=== PATIENT | male | born 1955 | race Caucasian/White ===

== ENCOUNTER 2020-08-12 22:06 | Emergency (ER) | payer OTHER, SELFPAY ==
[2020-08-12 22:20] VITALS: BP 111/68; PULSE 76; RESP 18; TEMP 36.8; O2SAT 99; BMI 27.9
--- NOTE | 2020-08-12 22:57 | ED_ITS ---
HPI - Arrhythmia/Palpitations General Chief Complaint: Arrhythmia/Palpitations Stated Complaint: heart issues Time Seen by Provider: 08/12/20 22:36 Source: patient Mode of arrival: Ambulatory Limitations: no limitations History of Present Illness HPI narrative: Otherwise healthy quite active 65-year-old gentleman with approximately 7 brief episodes of paroxysmal atrial fibrillation over the last 4 years. He does have mild left atrial enlargement. One of these episodes required electrical cardioversion and all of the others have spontaneously converted. He worked out this morning and at the end of his work at noticed that his heart rate was regular. He lives on [facility] and was waiting until the very last fairy hoping that he would convert spontaneously. He did take an extra 25 mg of metoprolol and noted that his rate was in the 70s and 80s most of the day but continued to be irregular. He had no chest pain, orthopnea, dyspnea, nausea, vomiting, headache, neurologic changes or findings, diarrhea or abdominal pain. Related Data Home Medications Medication Instructions Recorded Confirmed aspirin 81 mg PO QDAY #30 tab 12/21/15 atorvastatin 40 mg HS #0 12/21/15 Review of Systems Review of Systems Narrative: Remainder of complete review of systems is otherwise unremarkable except for that included in the HPI. Patient History Medical History Paroxysmal atrial fibrillation Social History Smoking Status: Never smoker Smoking Status: Never smoker alcohol intake frequency: a few times a month Substance Use Type: does not use Exam Narrative Exam Narrative: General: Healthy appearing, in no acute distress. Able to give a complete and coherent history. Well-nourished well-developed HEENT: Moist mucous membranes, normal sclera with reactive pupils, Neck: No JVD, supple Respiratory: Lungs are clear to auscultation, no wheezing no rales no rhonchi. Full and symmetrical air movement Cardiac: Regular rate and rhythm no murmurs no bruits Abdomen: Soft, nontender, good bowel tones, no flank pain Skin: Warm and dry, no rashes Neurologic: Grossly neurologically intact with no obvious asymmetries or abnormalities Extremities: No trauma, well perfused Psych: Cooperative, appropriate insight and affect Initial Vital Signs Initial Vital Signs: Vital Signs Temperature 98.2 F 08/12/20 22:20 Pulse Rate 76 08/12/20 22:20 Respiratory Rate 18 08/12/20 22:20 Blood Pressure 111/68 08/12/20 22:20 Pulse Oximetry 99 08/12/20 22:20 Course Orders Ordered: ED Orders 08/12/20 22:36 Complete Blood Count AUTO DIFF Stat Comprehensive Metabolic Panel Stat Magnesium Stat Thyroid Stimulating Hormone Stat Troponin I Stat 08/12/20 22:45 EKG-12 Lead Stat Vital Signs Vital signs: Vital Signs - 8 hr 08/12/20 22:20 Temperature 98.2 F Pulse Rate 76 Respiratory Rate 18 Blood Pressure 111/68 Pulse Oximetry 99 MDM - Arrhythmia/Palpitations Medical Records Attestation: I reviewed the patient's medical records. ECG Data Attestation: I personally reviewed and interpreted this ECG as follows: Interpretation: 1. 22:28 Atrial flutter with variable block at a rate of 85 Nonspecific T-wave abnormality No acute ischemic changes 222:50 Sinus rhythm at a rate of 45 Normal intervals, normal axis Resolved ST changes No acute ischemic findings MDM Narrative Medical decision making narrative: 65-year-old gentleman with a history of paroxysmal atrial fibrillation with 14 hours of atrial fibrillation today otherwise asymptomatic. Came to the emergency room for further evaluation and anticipation of cardioversion and he spontaneously cardioverted as his IV was started. As he is otherwise healthy and has had no symptoms no additional workup was felt to be required at this time. I did recommend that he begin a baby aspirin a day and follow-up with his hospital internship. He notes that he is due for another echocardiogram next year. He has no evidence of infection, medication overuse or overdose, or congestive heart failure. He is safe for discharge home. Discharge Plan Departure Patient Disposition: Home Clinical Impression: Paroxysmal atrial fibrillation Instructions: DI for Atrial Flutter Activity Restrictions/Additional Instructions: Thank you for coming in today You converted from atrial flutter to normal sinus rhythm with your IV start in the emergency department. Because you have not been having pain, have not been short of breath and have no other complaints we opted to not proceed with any further labs or studies at this time. Your repeat EKG was entirely normal. At this point, I would recommend baby aspirin for at least 6 weeks and do contact your hospital internship to see if they have any other suggestions or recommendations. The way that you used your metoprolol today with absolutely perfect. Should you have a recurrent episode, please continue to use the metoprolol in this manner. If you have chest pain, shortness of breath, fibrillation that does not convert after 12 hours or new or developing symptoms, please feel free to return to the emergency department. Prescriptions: No Action atorvastatin 40 MG tablet 40 mg HS Qty: 0 RF: 0 aspirin 81 MG tablet,delayed release (DR/EC) 81 mg PO QDAY Qty: 30 RF: 0 Referrals: Syd Page MD [Primary Care Provider] -
--- NOTE | 2020-08-12 23:02 | PC.NURSE ---
Pt spontaneously converted from atrial fibrillation to sinus atif during IV start at 2250
== END 2020-08-12 23:32 | disposition home or self-care (01) ==
PROVIDERS: Emergency Provider Emergency Medicine; PCP Family Medicine
DX: I48.0 Paroxysmal atrial fibrillation (principal)
CPT/HCPCS: 36415; 93005; 93010; 99283

== ENCOUNTER → 2022-02-16 07:10 | Outpatient (CLI) | payer MEDICARE, OTHER, SELFPAY ==
[2022-02-16 20:54] LABS: COVID19 - ORCAS (NP or Nasal) Negative (Negative)
== END ==
PROVIDERS: PCP Family Medicine; Visit Provider Family Medicine
DX: Z20.822 Contact with and (suspected) exposure to COVID-19 (principal)
CPT/HCPCS: C9803; U0003

== ENCOUNTER → 2022-02-17 09:46 | Outpatient (CLI) | payer MEDICARE, OTHER, SELFPAY ==
--- NOTE | 2022-02-22 09:27 | PM.PFT.1 ---
Pulmonary Function Test Referral & Results Date Patient Seen: 02/17/22 Requesting provider: Cori Dias Results: The spirometry demonstrates an FVC of 3.82 L which is 83% of predicted. The FEV1 was measured at 2.67 L which is 70% of predicted. The FEV1/FVC ratio was 70 which is 93% of predicted. Following the administration of bronchodilator there was an 11% improvement in FEV1 and a 35% improvement in FEF 25-75%. Lung volumes show an SVC of 3.84 L which is 82% of predicted. The diffusing capacity was measured at 27.41 which is 84% of predicted. The maximum voluntary ventilation was reduced Interpretation: This study demonstrates possibly mild obstructive lung disease based on reduction FEV1 although FEV1/FVC ratio is well preserved, there is evidence of benefit following bronchodilator as above There was a very minimal reduction in lung volumes suggesting the possibility of minimal restrictive lung disease Diffusing capacity should be considered normal There is a minimal reduction in maximum voluntary ventilation, which also supports the presence of minimal obstructive lung disease
== END ==
PROVIDERS: PCP Family Medicine; Referring Provider Internal Medicine Pulmonary Disease; Visit Provider Internal Medicine Pulmonary Disease
DX: R06.09 Other forms of dyspnea (principal); J98.8 Other specified respiratory disorders
CPT/HCPCS: 94060; 94726; 94729

== ENCOUNTER 2022-02-23 21:09 | Emergency (ER) | payer MEDICARE, OTHER, SELFPAY ==
[2022-02-23] VITALS (15 sets, daily range): BP systolic 86–126; BP diastolic 52–77; PULSE 44–81; RESP 13–34; TEMP 36.6; O2SAT 92–98; BMI 27.9
--- NOTE | 2022-02-23 21:27 | ED_ITS ---
HPI - Arrhythmia/Palpitations General Chief Complaint: Arrhythmia/Palpitations Stated Complaint: Afib episode Time Seen by Provider: 02/23/22 21:19 Source: patient Mode of arrival: Ambulatory History of Present Illness HPI narrative: 66-year-old male nonsmoker with history of AFib on Eliquis presents with his in the chief complaint of shortness of breath, chest pressure and some lightheadedness over the past few days. He states that he is in paroxysmal AFib and usually bumps out after few hours but this time it has been a few days. His resting heart rate when in a sinus rhythm is in the 40s and he states that rarely does his AFib go above 90, however is quite sensitive to it in aware of its presence. He is had some increasing episodes and severity since his most recent COVID vaccine. He denies any change in the doses or type of medications. He has been on Eliquis for a year and a half and has not missed any doses. He is otherwise well and denies fever or chills. He has no abdominal pain, vomiting or diarrhea. He denies dysuria, frequency or urgency. He was cardioverted once before about 7 years ago but not since Related Data Home Medications Medication Instructions Recorded Confirmed atorvastatin 40 mg tablet 40 mg HS ##0 12/21/15 atorvastatin 80 mg tablet 80 mg PO DAILY 11/11/20 11/11/20 ivermectin 1 % topical cream 1 applic topical DAILY 11/11/20 11/11/20 metoprolol succinate 25 mg 12.5 mg PO DAILY 11/11/20 11/11/20 tablet,extended release 24 hr metronidazole 0.75 % lotion 1 applic topical DAILY 11/11/20 11/11/20 apixaban 5 mg tablet (Eliquis) 5 mg PO BID 11/18/20 11/18/20 glucosamine sulfate [Glucosamine] PO 11/18/20 11/18/20 metronidazole 0.75 % topical cream 1 applic topical DAILY 11/18/20 11/18/20 multivitamin [Daily Multi-Vitamin] PO 11/18/20 11/18/20 psyllium [Metamucil (sugar)] PO 11/18/20 11/18/20 Allergies Allergy/AdvReac Type Severity Reaction Status Date / Time No Known Drug Allergies Allergy Unverified 11/11/20 09:05 Review of Systems Review of Systems Narrative: GENERAL: see HPI HEENT: Denies sinus pain, ear pain, sore throat, difficulty swallowing, diz ziness. RESPIRATORY: see HPI CARDIOVASCULAR: Denies chest pain, palpitations, orthopnea, edema, GASTROINTESTINAL: Denies nausea, vomiting, abdominal pain, diarrhea, constipation, melena. : Denies dysuria, frequency, incontinence, hematuria, urinary retention. MUSCULOSKELETAL: denies weakness, joint pain, or bony pain SKIN: Denies rash, skin lesions, or other NEUROLOGIC: Denies weakness, headache, numbness, change in speech, confusion, seizures, incoordination. PSYCHIATRIC: No concerning psychosocial issues. 12 point review of systems is negative except for those stated above Patient History Medical History History of adenomatous polyp of colon (~03/16/17) Hypertension Paroxysmal atrial fibrillation (~04/09/18) Personal history of colonic polyps Social History Smoking Status: Never smoker Smoking Status: Never smoker alcohol intake frequency: a few times a month Substance Use Type: does not use Exam Narrative Exam Narrative: GENERAL: [66] year old patient appears stated age. Well-developed patient, in mild distress. HEAD: Atraumatic. Normocephalic. EYES: Pupils equal round and reactive. Extraocular motions intact. No scleral icterus. No injection or drainage. ENT: Nose without bleeding, purulent drainage. Throat without erythema, tonsillar hypertrophy or exudate. Airway patent. NECK: Trachea midline. Non tender CARDIOVASCULAR: Irregularly irregular rhythm without murmurs, gallops, or rubs. RESPIRATORY: Clear to auscultation. Breath sounds equal bilaterally. No wheezes, rales, or rhonchi. GASTROINTESTINAL: Abdomen soft, non-tender, nondistended. EXTREMITIES: No edema or joint tenderness. BACK: Nontender without deformity or crepitance. No flank tenderness. NEURO: AOx3. SKIN: No rash or erythema of visible areas Initial Vital Signs Initial Vital Signs: Vital Signs Temperature 97.8 F 02/23/22 21:19 Pulse Rate 80 02/23/22 21:19 Respiratory Rate 16 02/23/22 21:19 Blood Pressure 126/77 02/23/22 21:19 Pulse Oximetry 98 02/23/22 21:19 Oxygen Delivery Method 02/23/22 21:19 Course Orders Ordered: ED Orders 02/24/22 EKG-12 Lead Routine Discontinued Medications Propofol (Propofol 200 Mg/20 Ml Vial) 90 mg 1 mg/kg (90 mg) IV NOW ONE Stop: 02/23/22 21:39 Last Admin: 02/23/22 22:14 Dose: 70 mg Documented By: AT Vital Signs Vital signs: Vital Signs - 8 hr 02/23/22 21:19 Temperature 97.8 F Pulse Rate 80 Respiratory Rate 16 Blood Pressure 126/77 Pulse Oximetry 98 Oxygen Delivery Method Room Air MDM - Arrhythmia/Palpitations Lab Data Result diagrams: 02/23/22 21:37 02/23/22 21:37 Labs: Lab Results 02/23/22 02/23/22 Range/Units 21:37 21:37 WBC 8.3 (4.5-11.0) X10^3/uL RBC 4.43 L (4.5-5.9) X10^6/uL Hgb 14.8 (13.5-17.5) g/dL Hct 44.0 (41-53) % MCV 99.5 (80-100) fL MCH 33.5 (26-34) PG MCHC 33.7 (30-36) % RDW 13.9 (11.6-14.8) % Plt Count 148 L (150-400) X10^3/uL Neut % (Auto) 50.9 (50-75) % Lymph % (Auto) 32.3 (25-40) % Bartholomew % (Auto) 12.2 (3-14) % Eos % (Auto) 3.6 (2-4) % Baso % (Auto) 1.0 (0-2) % Neut # (Auto) 4200 (8555-9909) /uL Lymph # (Auto) 2700 (8060-7667) /uL Bartholomew # (Auto) 1000 H (0-900) /uL Eos # (Auto) 300 (0-450) /uL Baso # (Auto) 100 (0-100) /uL Sodium 138 (137-145) mmol/L Potassium 4.0 (3.4-5.1) mmol/L Chloride 101 (98-107) mmol/L Carbon Dioxide 27 (22-32) mmol/L BUN 21 H (9-20) mg/dL Creatinine 1.06 (0.66-1.25) mg/dL Estimated GFR > 60 (>60) mL/min BUN/Creatinine Ratio 19.8 (6-22) Glucose 127 H (80-110) mg/dL Calcium 8.9 (8.4-10.2) mg/dL Magnesium 1.8 (1.6-2.3) mg/dL Total Creatine Kinase 141 (55-170) U/L CK-MB (CK-2) 2.75 H (<2.37) ng/mL CK-MB (CK-2) Rel Index 2.0 (1.5-5.0) % Troponin I 0.019 (0.01-0.034) ng/mL Discharge Plan Departure Patient Disposition: Home Clinical Impression: Paroxysmal atrial fibrillation Instructions: DI for Atrial Fibrillation Activity Restrictions/Additional Instructions: *You have been diagnosed with [atrial fibrillation with procedural sedation and electrocardioversion] *What to do: *Please continue to take your regular medications as directed. *Please follow up with your primary care provider in 2-3 days, call for an appointment. Let them know you were seen in the Emergency Department and that we ask that you be seen in follow up. We will electronically transmit a record of today's note if your PCP is in our system *Return to Emergency Department if you should have any new, worsening or concerning symptoms Prescriptions: No Action atorvastatin 40 MG tablet 40 mg HS Qty: 0 Eliquis 5 mg tablet 5 mg PO BID multivitamin [Daily Multi-Vitamin] PO glucosamine sulfate [Glucosamine] PO psyllium [Metamucil (sugar)] PO metronidazole 0.75 % cream 1 applic topical DAILY atorvastatin 80 mg tablet 80 mg PO DAILY ivermectin 1 % cream 1 applic topical DAILY metoprolol succinate 25 mg tablet extended release 24 hr 12.5 mg PO DAILY metronidazole 0.75 % lotion 1 applic topical DAILY Referrals: Ernst Martinez DO [Primary Care Provider] - Visit Report Forms: Patient Portal/API
[2022-02-23 21:45] LABS: Add Manual Diff / Slide Review NO; Basophils Absolute Auto 100 /uL (0-100); Eosinophils Absolute Auto 300 /uL (0-450); Eosinophils Percent Auto 3.6 % (2-4); Hemoglobin 14.8 g/dL (13.5-17.5); Lymphocytes Absolute Auto 2700 /uL (1100-4500); Lymphocytes Percent Auto 32.3 % (25-40); Mean Corpuscular HGB Conc 33.7 % (30-36); Mean Corpuscular Hemoglobin 33.5 PG (26-34); Mean Corpuscular Volume 99.5 fL (80-100); Monocytes Absolute Auto 1000 /uL (0-900); Monocytes Percent Auto 12.2 % (3-14); Neutrophils Absolute Auto 4200 /uL (1500-7000); Neutrophils Percent Auto 50.9 % (50-75); Platelet Count 148 X10^3/uL (150-400); Red Blood Cell Count 4.43 X10^6/uL (4.5-5.9); Red Cell Distribution Width 13.9 % (11.6-14.8); White Blood Cell Count 8.3 X10^3/uL (4.5-11.0)
[2022-02-23 21:58] LABS: BUN Creatinine Ratio 19.8 (6-22); Blood Urea Nitrogen 21 mg/dL (9-20); Calcium 8.9 mg/dL (8.4-10.2); Carbon Dioxide 27 mmol/L (22-32); Chloride 101 mmol/L (98-107); Creatine Kinase 141 U/L (55-170); Estimated Glomerular Filt Rate > 60 mL/min (>60); Glucose 127 mg/dL (80-110); Magnesium 1.8 mg/dL (1.6-2.3); Sodium 138 mmol/L (137-145)
[2022-02-23 22:11] LABS: Troponin I 0.019 ng/mL (0.01-0.034)
[2022-02-23 22:12] LABS: Creatine Kinase MB 2.75 ng/mL (<2.37); HEMOLYSIS 23 (0-50)
[2022-02-23] MEDS: propofoL 200 MG/20 ML VIAL 90 MG IV (22:14)
== END 2022-02-23 23:05 | disposition home or self-care (01) ==
PROVIDERS: Emergency Provider Emergency Medicine; PCP Family Medicine
DX: I48.0 Paroxysmal atrial fibrillation (principal); Z79.01 Long term (current) use of anticoagulants; R07.9 Chest pain, unspecified; Z79.899 Other long term (current) drug therapy
CPT/HCPCS: 36415; 80048; 82550; 82553; 83735; 84484; 85025; 92960; 93005; 99152; 99285; J2704

== ENCOUNTER 2022-07-22 10:56 | Emergency (ER) | payer MEDICARE, OTHER, SELFPAY ==
[2022-07-22] VITALS (33 sets, daily range): BP systolic 99–119; BP diastolic 61–82; PULSE 40–74; RESP 13–37; TEMP 36.1; O2SAT 93–100; BMI 27.9
--- NOTE | 2022-07-22 11:12 | DI.RAD.S_ITS ---
PROCEDURE: XR CHEST 1V INDICATIONS: chest pain TECHNIQUE: One view of the chest was acquired. COMPARISON: None. FINDINGS: Surgical changes and devices: None. Lungs and pleura: Lungs are clear. No pleural effusions or pneumothorax. Mediastinum: Mediastinal contours appear normal. Heart size is normal. Bones and chest wall: No suspicious bony lesions. Overlying soft tissues appear unremarkable. IMPRESSION: No acute cardiopulmonary findings Approved by: Brad Gomes M.D. on 07/22/2022 at 11:32
[2022-07-22 11:33] LABS: Add Manual Diff / Slide Review NO; Basophils Absolute Auto 100 /uL (0-100); Basophils Percent Auto 1.2 % (0-2); Eosinophils Absolute Auto 200 /uL (0-450); Eosinophils Percent Auto 3.7 % (2-4); Hematocrit 43.4 % (41-53); Hemoglobin 14.7 g/dL (13.5-17.5); Lymphocytes Absolute Auto 2200 /uL (1100-4500); Lymphocytes Percent Auto 34.7 % (25-40); Mean Corpuscular Hemoglobin 33.6 PG (26-34); Mean Corpuscular Volume 99.1 fL (80-100); Monocytes Absolute Auto 800 /uL (0-900); Monocytes Percent Auto 11.8 % (3-14); Neutrophils Absolute Auto 3100 /uL (1500-7000); Neutrophils Percent Auto 48.6 % (50-75); Platelet Count 142 X10^3/uL (150-400); Red Blood Cell Count 4.38 X10^6/uL (4.5-5.9); White Blood Cell Count 6.5 X10^3/uL (4.5-11.0)
[2022-07-22 11:37] LABS: INR 1.4 (0.9-1.3); Prothrombin Time 16.5 SECONDS (10.1-12.7)
[2022-07-22 11:40] LABS: PTT Partial Thromboplastin Tim 33 SECONDS (26-36)
[2022-07-22 11:46] LABS: Alanine Aminotransferase 27 IU/L (<50); Albumin Globulin Ratio 1.4 (1.0-2.8); Alkaline Phosphatase 47 U/L (38-126); Aspartate Aminotransferase 34 IU/L (17-59); BUN Creatinine Ratio 20.4 (6-22); Bilirubin Total 0.8 mg/dL (0.2-1.3); Blood Urea Nitrogen 19 mg/dL (9-20); Calcium 8.8 mg/dL (8.4-10.2); Carbon Dioxide 29 mmol/L (22-32); Chloride 102 mmol/L (98-107); Creatine Kinase 154 U/L (55-170); Estimated Glomerular Filt Rate > 60 mL/min (>60); Globulin 2.8 g/dL (1.7-4.1); Glucose 101 mg/dL (80-110); HEMOLYSIS < 15 (0-50); Lipase 142 U/L (23-300); Magnesium 1.9 mg/dL (1.6-2.3); Sodium 138 mmol/L (137-145); Total Protein 6.8 g/dL (6.3-8.2)
[2022-07-22 11:49] LABS: COVID19 -Nasal RAPID Negative (Negative)
[2022-07-22 11:54] LABS: Troponin I < 0.012 ng/mL (0.01-0.034)
[2022-07-22 12:16] LABS: CKMB % Relative Index 1.6 % (1.5-5.0); Creatine Kinase MB 2.45 ng/mL (<2.37)
--- NOTE | 2022-07-22 14:31 | ED.ARRPALP ---
HPI - Arrhythmia/Palpitations <VANDANA HubbardP - Last Filed: 07/22/22 16:29> General Chief Complaint: Arrhythmia/Palpitations Stated Complaint: AFib converted per pt Time Seen by Provider: 07/22/22 14:17 Source: patient Mode of arrival: Ambulatory History of Present Illness HPI narrative: This is a 67-year-old gentleman with history of paroxysmal atrial fibrillation which she attributes to post COVID vaccine over 2 years ago. States that he is had 3 cardioversions and is pending a consultation with the [facility] for EP mapping and cardioversion soon. He sees Dr. Whitney from the [facility] for Cardiac electrophysiology. Patient states that he is quite healthy, exercises daily, has been on apixaban 5 mg daily and metoprolol 25 mg ER daily for a few years. States that he takes magnesium supplement. States he does not have any known triggers, states this has happened intermittently for many years and he feels that he has low energy level, and does not have his normal energy level. He is here requesting cardioversion as he is hoping for a better quality of life while he waits to go to the [facility]. He denies any symptoms of illness, denies any fever upper respiratory symptoms, denies dizziness, weakness, vision changes, chest pain or shortness of breath, he denies any history cardiac event, states his only arrhythmias atrial fibrillation and he is not had a cardiac catheterization. Reports that he has been NPO since 09:00. Related Data Home Medications Medication Instructions Recorded Confirmed atorvastatin 40 mg tablet 40 mg ##0 12/21/15 atorvastatin 80 mg tablet 80 mg PO DAILY 11/11/20 11/11/20 ivermectin 1 % topical cream 1 applic topical DAILY 11/11/20 11/11/20 metoprolol succinate 25 mg 25 mg PO DAILY 11/11/20 07/22/22 tablet,extended release 24 hr metronidazole 0.75 % lotion 1 applic topical DAILY 11/11/20 11/11/20 apixaban 5 mg tablet (Eliquis) 5 mg PO BID 11/18/20 07/22/22 glucosamine sulfate [Glucosamine] PO 11/18/20 11/18/20 metronidazole 0.75 % topical cream 1 applic topical DAILY 11/18/20 11/18/20 multivitamin [Daily Multi-Vitamin] PO 11/18/20 11/18/20 psyllium [Metamucil (sugar)] PO 11/18/20 11/18/20 Allergies Allergy/AdvReac Type Severity Reaction Status Date / Time No Known Drug Allergies Allergy Verified 07/22/22 11:11 Review of Systems <FANY Hubbard - Last Filed: 07/22/22 16:29> Review of Systems ROS Unobtainable: All systems reviewed & are unremarkable except as noted in HPI and below Patient History <FANY Hubbard - Last Filed: 07/22/22 16:29> Medical History History of adenomatous polyp of colon (~03/16/17) Hypertension Paroxysmal atrial fibrillation (~04/09/18) Personal history of colonic polyps Social History Smoking Status: Never smoker Smoking Status: Never smoker alcohol intake frequency: a few times a month Substance Use Type: does not use Exam <FANY Hubbard - Last Filed: 07/22/22 16:29> Narrative Exam Narrative: Reviewed vitals signs and nursing notes. General: Pleasant, sitting upright, in no acute distress, well groomed, afebrile HEENT: symmetrical facial expressions, moist mucous membranes, neck is supple CV: Irregular rhythm and bradycardic rate 50s to 60s, EKG with atrial fibrillation and no ST changes, no murmur, warm extremities without edema Status post cardioversion, sinus bradycardia on EKG with ST changes or acute abnormality, he is bradycardic in 40s with S1-S2, no murmur Respiratory: normal work of breathing, without tachypnea or hypoxia. GI: abdomen soft, nondistended, without CVA tenderness bilaterally. MSK: moves all extremities, no weakness, normal tone, ambulatory without deficit Skin: brisk capillary refill, without rash or wound Neuro: clear speech and normal cognition, A&O x3, GCS 15, no focal motor or sensation deficits Initial Vital Signs Initial Vital Signs: Vital Signs Temperature 97.0 F L 07/22/22 11:06 Pulse Rate 67 07/22/22 11:06 Respiratory Rate 18 07/22/22 11:06 Blood Pressure 119/71 07/22/22 11:06 Pulse Oximetry 99 07/22/22 11:06 Oxygen Delivery Method Room Air 07/22/22 11:06 <Celso Chavez MD - Last Filed: 08/06/22 22:21> Initial Vital Signs Initial Vital Signs: Vital Signs Temperature 97.0 F L 07/22/22 11:06 Pulse Rate 67 07/22/22 11:06 Respiratory Rate 18 07/22/22 11:06 Blood Pressure 119/71 07/22/22 11:06 Pulse Oximetry 99 07/22/22 11:06 Oxygen Delivery Method Room Air 07/22/22 11:06 <Celos Chavez MD - Last Filed: 08/06/22 22:21> Cardioversion Time of Cardioversion: 15:45 Consent Signed: Yes Indication: Symptomatic atrial fibrillation Stability: Stable Number of attempts (shocks): 2 Joules used: 150 Cardiac rhythm post-cardioversion: Sinus bradycardia Procedural Sedation Time of procedure: 15:45 Consent signed: Yes Time out performed: Yes Indication: cardioversion ASA Class: I Mallampati Airway Classification: Class I Time of Last PO Intake: 09:00 Preparation: panel monitor applied, pulse oximeter, capnometry used, supplemental O2 applied, reversal agents at bedside, suction/airway equipment at bedside and IV secured IV Propofol dose (mg): 90 Intraservice time/total sedation time (min): 10 ED Sedation Level: Moderate (Concious) Patient Tolerated Procedure: Well Complications: none Additional Comments: Patient tolerated very well. No adverse events. Course <FANY Hubbard - Last Filed: 07/22/22 16:29> Orders Ordered: Discontinued Medications Propofol (Propofol 200 Mg/20 Ml Vial) 90 mg 1 mg/kg (90 mg) IV NOW ONE Stop: 07/22/22 15:21 Last Admin: 07/22/22 15:48 Dose: 90 mg Documented By: ROBEL Vital Signs Vital signs: Vital Signs - 8 hr 07/22/22 11:06 07/22/22 14:06 07/22/22 14:06 Temperature 97.0 F L Pulse Rate 67 62 Respiratory Rate 18 Blood Pressure 119/71 115/82 Pulse Oximetry 99 100 Oxygen Delivery Method Room Air 07/22/22 14:10 07/22/22 14:15 07/22/22 14:20 Temperature Pulse Rate 65 67 61 Respiratory Rate Blood Pressure Pulse Oximetry 100 100 100 Oxygen Delivery Method 07/22/22 14:25 07/22/22 14:30 07/22/22 14:31 Temperature Pulse Rate 54 L 74 Respiratory Rate Blood Pressure 115/78 Pulse Oximetry 99 100 Oxygen Delivery Method 07/22/22 14:31 07/22/22 14:35 07/22/22 14:40 Temperature Pulse Rate 62 60 59 L Respiratory Rate Blood Pressure Pulse Oximetry 100 100 99 Oxygen Delivery Method 07/22/22 14:45 07/22/22 14:50 07/22/22 14:55 Temperature Pulse Rate 69 69 64 Respiratory Rate 22 15 Blood Pressure Pulse Oximetry 99 99 99 Oxygen Delivery Method 07/22/22 15:00 07/22/22 15:00 07/22/22 15:05 Temperature Pulse Rate 65 73 Respiratory Rate 23 Blood Pressure 117/71 Pulse Oximetry 98 99 Oxygen Delivery Method 07/22/22 15:10 07/22/22 15:15 07/22/22 15:20 Temperature Pulse Rate 68 65 67 Respiratory Rate 20 16 Blood Pressure Pulse Oximetry 99 99 99 Oxygen Delivery Method 07/22/22 15:25 07/22/22 15:30 07/22/22 15:30 Temperature Pulse Rate 63 71 Respiratory Rate 19 Blood Pressure 119/72 Pulse Oximetry 99 100 Oxygen Delivery Method 07/22/22 15:35 07/22/22 15:40 07/22/22 15:45 Temperature Pulse Rate 66 72 Respiratory Rate 17 Blood Pressure 114/71 Pulse Oximetry 99 100 Oxygen Delivery Method 07/22/22 15:45 07/22/22 15:50 07/22/22 15:50 Temperature Pulse Rate 69 42 L Respiratory Rate 17 Blood Pressure 99/63 Pulse Oximetry 100 93 Oxygen Delivery Method 07/22/22 15:55 07/22/22 15:55 07/22/22 16:00 Temperature Pulse Rate 43 L 41 L Respiratory Rate Blood Pressure 106/67 Pulse Oximetry 100 100 Oxygen Delivery Method 07/22/22 16:01 07/22/22 16:01 07/22/22 16:05 Temperature Pulse Rate 41 L Respiratory Rate 37 H Blood Pressure 104/61 107/66 Pulse Oximetry 100 Oxygen Delivery Method 07/22/22 16:05 07/22/22 16:10 07/22/22 16:13 Temperature Pulse Rate 41 L 41 L Respiratory Rate 19 13 Blood Pressure 103/62 Pulse Oximetry 98 100 Oxygen Delivery Method 07/22/22 16:13 07/22/22 16:15 07/22/22 16:15 Temperature Pulse Rate 43 L 46 L Respiratory Rate 16 20 Blood Pressure 108/67 Pulse Oximetry 100 100 Oxygen Delivery Method 07/22/22 16:20 07/22/22 16:20 07/22/22 16:25 Temperature Pulse Rate 41 L Respiratory Rate 20 Blood Pressure 116/65 115/62 Pulse Oximetry 99 Oxygen Delivery Method 07/22/22 16:25 Temperature Pulse Rate 40 L Respiratory Rate 23 Blood Pressure Pulse Oximetry 100 Oxygen Delivery Method <Celso Chavez MD - Last Filed: 08/06/22 22:21> Orders Ordered: Discontinued Medications Propofol (Propofol 200 Mg/20 Ml Vial) 90 mg 1 mg/kg (90 mg) IV NOW ONE Stop: 07/22/22 15:21 Last Admin: 07/22/22 15:48 Dose: 90 mg Documented By: ROBEL Vital Signs Vital signs: Vital Signs - 8 hr 07/22/22 11:06 07/22/22 14:06 07/22/22 14:06 Temperature 97.0 F L Pulse Rate 67 62 Respiratory Rate 18 Blood Pressure 119/71 115/82 Pulse Oximetry 99 100 Oxygen Delivery Method Room Air 07/22/22 14:10 07/22/22 14:15 07/22/22 14:20 Temperature Pulse Rate 65 67 61 Respiratory Rate Blood Pressure Pulse Oximetry 100 100 100 Oxygen Delivery Method 07/22/22 14:25 07/22/22 14:30 07/22/22 14:31 Temperature Pulse Rate 54 L 74 Respiratory Rate Blood Pressure 115/78 Pulse Oximetry 99 100 Oxygen Delivery Method 07/22/22 14:31 07/22/22 14:35 07/22/22 14:40 Temperature Pulse Rate 62 60 59 L Respiratory Rate Blood Pressure Pulse Oximetry 100 100 99 Oxygen Delivery Method 07/22/22 14:45 07/22/22 14:50 07/22/22 14:55 Temperature Pulse Rate 69 69 64 Respiratory Rate 22 15 Blood Pressure Pulse Oximetry 99 99 99 Oxygen Delivery Method 07/22/22 15:00 07/22/22 15:00 07/22/22 15:05 Temperature Pulse Rate 65 73 Respiratory Rate 23 Blood Pressure 117/71 Pulse Oximetry 98 99 Oxygen Delivery Method 07/22/22 15:10 07/22/22 15:15 07/22/22 15:20 Temperature Pulse Rate 68 65 67 Respiratory Rate 20 16 Blood Pressure Pulse Oximetry 99 99 99 Oxygen Delivery Method 07/22/22 15:25 07/22/22 15:30 07/22/22 15:30 Temperature Pulse Rate 63 71 Respiratory Rate 19 Blood Pressure 119/72 Pulse Oximetry 99 100 Oxygen Delivery Method 07/22/22 15:35 07/22/22 15:40 07/22/22 15:45 Temperature Pulse Rate 66 72 Respiratory Rate 17 Blood Pressure 114/71 Pulse Oximetry 99 100 Oxygen Delivery Method 07/22/22 15:45 07/22/22 15:50 07/22/22 15:50 Temperature Pulse Rate 69 42 L Respiratory Rate 17 Blood Pressure 99/63 Pulse Oximetry 100 93 Oxygen Delivery Method 07/22/22 15:55 07/22/22 15:55 07/22/22 16:00 Temperature Pulse Rate 43 L 41 L Respiratory Rate Blood Pressure 106/67 Pulse Oximetry 100 100 Oxygen Delivery Method 07/22/22 16:01 07/22/22 16:01 07/22/22 16:05 Temperature Pulse Rate 41 L Respiratory Rate 37 H Blood Pressure 104/61 107/66 Pulse Oximetry 100 Oxygen Delivery Method 07/22/22 16:05 07/22/22 16:10 07/22/22 16:13 Temperature Pulse Rate 41 L 41 L Respiratory Rate 19 13 Blood Pressure 103/62 Pulse Oximetry 98 100 Oxygen Delivery Method 07/22/22 16:13 07/22/22 16:15 07/22/22 16:15 Temperature Pulse Rate 43 L 46 L Respiratory Rate 16 20 Blood Pressure 108/67 Pulse Oximetry 100 100 Oxygen Delivery Method 07/22/22 16:20 07/22/22 16:20 07/22/22 16:25 Temperature Pulse Rate 41 L Respiratory Rate 20 Blood Pressure 116/65 115/62 Pulse Oximetry 99 Oxygen Delivery Method 07/22/22 16:25 Temperature Pulse Rate 40 L Respiratory Rate 23 Blood Pressure Pulse Oximetry 100 Oxygen Delivery Method MDM - Arrhythmia/Palpitations <FANY Hubbard - Last Filed: 07/22/22 16:29> Lab Data 07/22/22 11:16 07/22/22 11:16 Labs: Lab Results 07/22/22 07/22/22 07/22/22 Range/Units 11:16 11:16 11:16 WBC 6.5 (4.5-11.0) X10^3/uL RBC 4.38 L (4.5-5.9) X10^6/uL Hgb 14.7 (13.5-17.5) g/dL Hct 43.4 (41-53) % MCV 99.1 (80-100) fL MCH 33.6 (26-34) PG MCHC 34.0 (30-36) % RDW 14.0 (11.6-14.8) % Plt Count 142 L (150-400) X10^3/uL Neut % (Auto) 48.6 L (50-75) % Lymph % (Auto) 34.7 (25-40) % [place] % (Auto) 11.8 (3-14) % Eos % (Auto) 3.7 (2-4) % Baso % (Auto) 1.2 (0-2) % Neut # (Auto) 3100 (0979-9418) /uL Lymph # (Auto) 2200 (3359-9098) /uL [place] # (Auto) 800 (0-900) /uL Eos # (Auto) 200 (0-450) /uL Baso # (Auto) 100 (0-100) /uL PT 16.5 H (10.1-12.7) SECONDS INR 1.4 H (0.9-1.3) APTT 33 (26-36) SECONDS Sodium 138 (137-145) mmol/L Potassium 4.0 (3.4-5.1) mmol/L Chloride 102 (98-107) mmol/L Carbon Dioxide 29 (22-32) mmol/L BUN 19 (9-20) mg/dL Creatinine 0.93 (0.66-1.25) mg/dL Estimated GFR > 60 (>60) mL/min BUN/Creatinine Ratio 20.4 (6-22) Glucose 101 (80-110) mg/dL Calcium 8.8 (8.4-10.2) mg/dL Magnesium 1.9 (1.6-2.3) mg/dL Total Bilirubin 0.8 (0.2-1.3) mg/dL AST 34 (17-59) IU/L ALT 27 (<50) IU/L Alkaline Phosphatase 47 (38-126) U/L Total Creatine Kinase 154 (55-170) U/L CK-MB (CK-2) 2.45 H (<2.37) ng/mL CK-MB (CK-2) Rel Index 1.6 (1.5-5.0) % Troponin I < 0.012 (0.01-0.034) ng/mL Total Protein 6.8 (6.3-8.2) g/dL Albumin 4.0 (3.5-5.0) g/dL Globulin 2.8 (1.7-4.1) g/dL Albumin/Globulin Ratio 1.4 (1.0-2.8) Lipase 142 (23-300) U/L SARS-CoV-2 (PCR) (Negative) 07/22/22 Range/Units 11:16 WBC (4.5-11.0) X10^3/uL RBC (4.5-5.9) X10^6/uL Hgb (13.5-17.5) g/dL Hct (41-53) % MCV (80-100) fL MCH (26-34) PG MCHC (30-36) % RDW (11.6-14.8) % Plt Count (150-400) X10^3/uL Neut % (Auto) (50-75) % Lymph % (Auto) (25-40) % [place] % (Auto) (3-14) % Eos % (Auto) (2-4) % Baso % (Auto) (0-2) % Neut # (Auto) (2776-9934) /uL Lymph # (Auto) (9167-3331) /uL [place] # (Auto) (0-900) /uL Eos # (Auto) (0-450) /uL Baso # (Auto) (0-100) /uL PT (10.1-12.7) SECONDS INR (0.9-1.3) APTT (26-36) SECONDS Sodium (137-145) mmol/L Potassium (3.4-5.1) mmol/L Chloride (98-107) mmol/L Carbon Dioxide (22-32) mmol/L BUN (9-20) mg/dL Creatinine (0.66-1.25) mg/dL Estimated GFR (>60) mL/min BUN/Creatinine Ratio (6-22) Glucose (80-110) mg/dL Calcium (8.4-10.2) mg/dL Magnesium (1.6-2.3) mg/dL Total Bilirubin (0.2-1.3) mg/dL AST (17-59) IU/L ALT (<50) IU/L Alkaline Phosphatase (38-126) U/L Total Creatine Kinase (55-170) U/L CK-MB (CK-2) (<2.37) ng/mL CK-MB (CK-2) Rel Index (1.5-5.0) % Troponin I (0.01-0.034) ng/mL Total Protein (6.3-8.2) g/dL Albumin (3.5-5.0) g/dL Globulin (1.7-4.1) g/dL Albumin/Globulin Ratio (1.0-2.8) Lipase (23-300) U/L SARS-CoV-2 (PCR) Negative (Negative) Imaging Data Chest x-ray: Radiologist's Impresson: PROCEDURE:? XR CHEST 1V ? INDICATIONS:? chest pain ? TECHNIQUE:? One view of the chest was acquired.? ? COMPARISON:? None. ? FINDINGS:? ? Surgical changes and devices:? None.? ? Lungs and pleura:? Lungs are clear.? No pleural effusions or pneumothorax.? ? Mediastinum:? Mediastinal contours appear normal.? Heart size is normal.? ? Bones and chest wall:? No suspicious bony lesions.? Overlying soft tissues appear unremarkable.? ? IMPRESSION:? No acute cardiopulmonary findings ? ? ? Approved by: Brad Gomes M.D. on 07/22/2022 at 11:32? ECG Data Interpretation: EKG independently reviewed by myself at 1130 reveals atrial fibrillation at 60 beats per minute with regular axis and intervals. No STEMI, ST segment changes, arrhythmia, or acute ischemic changes. EKG independently reviewed by myself at 1557 reveals sinus bradycardia at 44 bpm with regular axis and intervals. No STEMI, ST segment changes, arrhythmia, or acute ischemic changes. MDM Narrative Medical decision making narrative: Chief Complaint: Atrial fibrillation requesting Multiple etiologies for patient's symptoms considered including, but not limited to: Arrhythmia/atrial fibrillation, I have independently reviewed the patient's vital signs and nursing notes as well as prior records if available. Pertinent records include: Pertinent lab findings reviewed: This is unremarkable, CMP shows elevated CK at 2.45 but this is less than his most previous on 02/23/2022, troponin is negative at 0.012, no elevation of liver enzymes, COVID PCR is negative, mild thrombocytopenia with a platelet count of 142, patient's INR is elevated at 1.4, he takes Eliquis. Pertinent Imaging reviewed: Chest x-ray does not show cardiomegaly, pleural effusions or pneumothorax no acute findings on my independent interpretation Consultations: Paged Dr. Whitney/EP team at [facility] to relay information Initial consultation with the transfer center at [facility] at 15:15 regarding consultation with patient's EP team. Want to relay information and have patient follow-up with his cardiology team status post cardioversion today. Pending field technical support consultant's call back Heart score of 2 Please see EKG interpretations above Course of care: [facility] cardiac EP returned call, I spoke with Dr. Phan who denies any concerns for cardioversion today. Patient is consented, no concerning findings on his lab work today, patient is anticoagulated, he is taking his Eliquis prescribed. Discussed cardioversion with Dr. Chavez who will assume care the cardioversion Patient was successfully cardioverted with 150 joules to sinus bradycardia with rate in the 40s. Patient is asymptomatic, states that he feels great and is ready to discharge home he was monitored for why, discuss his metoprolol dosing and to hold this at home if his heart rate is less than 60. Patient states understanding and is encouraged to follow. This note has been forwarded and communication has been related to [facility]. Social considerations that may affect disposition: none Questions are addressed and there is agreement with the plan and for follow-up. Patient is appropriate for outpatient management. <Celso Chavez MD - Last Filed: 08/06/22 22:21> Lab Data Labs: Lab Results 07/22/22 07/22/22 07/22/22 Range/Units 11:16 11:16 11:16 WBC 6.5 (4.5-11.0) X10^3/uL RBC 4.38 L (4.5-5.9) X10^6/uL Hgb 14.7 (13.5-17.5) g/dL Hct 43.4 (41-53) % MCV 99.1 (80-100) fL MCH 33.6 (26-34) PG MCHC 34.0 (30-36) % RDW 14.0 (11.6-14.8) % Plt Count 142 L (150-400) X10^3/uL Neut % (Auto) 48.6 L (50-75) % Lymph % (Auto) 34.7 (25-40) % [place] % (Auto) 11.8 (3-14) % Eos % (Auto) 3.7 (2-4) % Baso % (Auto) 1.2 (0-2) % Neut # (Auto) 3100 (8285-7092) /uL Lymph # (Auto) 2200 (7979-2041) /uL [place] # (Auto) 800 (0-900) /uL Eos # (Auto) 200 (0-450) /uL Baso # (Auto) 100 (0-100) /uL PT 16.5 H (10.1-12.7) SECONDS INR 1.4 H (0.9-1.3) APTT 33 (26-36) SECONDS Sodium 138 (137-145) mmol/L Potassium 4.0 (3.4-5.1) mmol/L Chloride 102 (98-107) mmol/L Carbon Dioxide 29 (22-32) mmol/L BUN 19 (9-20) mg/dL Creatinine 0.93 (0.66-1.25) mg/dL Estimated GFR > 60 (>60) mL/min BUN/Creatinine Ratio 20.4 (6-22) Glucose 101 (80-110) mg/dL Calcium 8.8 (8.4-10.2) mg/dL Magnesium 1.9 (1.6-2.3) mg/dL Total Bilirubin 0.8 (0.2-1.3) mg/dL AST 34 (17-59) IU/L ALT 27 (<50) IU/L Alkaline Phosphatase 47 (38-126) U/L Total Creatine Kinase 154 (55-170) U/L CK-MB (CK-2) 2.45 H (<2.37) ng/mL CK-MB (CK-2) Rel Index 1.6 (1.5-5.0) % Troponin I < 0.012 (0.01-0.034) ng/mL Total Protein 6.8 (6.3-8.2) g/dL Albumin 4.0 (3.5-5.0) g/dL Globulin 2.8 (1.7-4.1) g/dL Albumin/Globulin Ratio 1.4 (1.0-2.8) Lipase 142 (23-300) U/L SARS-CoV-2 (PCR) (Negative) 07/22/22 Range/Units 11:16 WBC (4.5-11.0) X10^3/uL RBC (4.5-5.9) X10^6/uL Hgb (13.5-17.5) g/dL Hct (41-53) % MCV (80-100) fL MCH (26-34) PG MCHC (30-36) % RDW (11.6-14.8) % Plt Count (150-400) X10^3/uL Neut % (Auto) (50-75) % Lymph % (Auto) (25-40) % [place] % (Auto) (3-14) % Eos % (Auto) (2-4) % Baso % (Auto) (0-2) % Neut # (Auto) (0094-2699) /uL Lymph # (Auto) (2138-8038) /uL [place] # (Auto) (0-900) /uL Eos # (Auto) (0-450) /uL Baso # (Auto) (0-100) /uL PT (10.1-12.7) SECONDS INR (0.9-1.3) APTT (26-36) SECONDS Sodium (137-145) mmol/L Potassium (3.4-5.1) mmol/L Chloride (98-107) mmol/L Carbon Dioxide (22-32) mmol/L BUN (9-20) mg/dL Creatinine (0.66-1.25) mg/dL Estimated GFR (>60) mL/min BUN/Creatinine Ratio (6-22) Glucose (80-110) mg/dL Calcium (8.4-10.2) mg/dL Magnesium (1.6-2.3) mg/dL Total Bilirubin (0.2-1.3) mg/dL AST (17-59) IU/L ALT (<50) IU/L Alkaline Phosphatase (38-126) U/L Total Creatine Kinase (55-170) U/L CK-MB (CK-2) (<2.37) ng/mL CK-MB (CK-2) Rel Index (1.5-5.0) % Troponin I (0.01-0.034) ng/mL Total Protein (6.3-8.2) g/dL Albumin (3.5-5.0) g/dL Globulin (1.7-4.1) g/dL Albumin/Globulin Ratio (1.0-2.8) Lipase (23-300) U/L SARS-CoV-2 (PCR) Negative (Negative) <Celso Chavez MD - Last Filed: 08/06/22 22:21> Critical Care Time Attestation: Critical Care Time 35 minutes: Critical care time is separate from other billable procedures. This critical care time includes consultation with family and other consulting doctors, review of records, and interpretation of data from labs, EKGs, imaging, etc. Discharge Plan Departure Patient Disposition: Home Clinical Impression: Paroxysmal atrial fibrillation, Encounter for cardioversion procedure Instructions: Cardioversion Activity Restrictions/Additional Instructions: *You have been diagnosed with paroxysmal atrial fibrillation with successful cardioversion today with 150 joules. You are now in sinus bradycardia, due to your low heart rate, please check your heart rate each morning before giving your metoprolol, if your heart rate is less than 60 please hold your metoprolol so that you are not too low. Stay hydrated, follow-up with your cardiology team, they are aware and have received your to EKGs from today. It was a pleasure to meet you both, thank you for your trust and your patience today, safe travels back home. Please do not miss any doses of your Eliquis. *What to do: *Please continue to take your regular medications as directed. [ ] New medication prescriptions sent to your pharmacy: [ ] [ ] New medication written as a paper prescription [x ] No new medications given *Please call and schedule follow up with your primary care provider in 2-3 days, at least for an update. Let them know you were seen in the Emergency Department for the above problem. We will electronically transmit a record of today's note if your PCP or specialist is in our system. *If you do not have a primary care provider please contact [phone] to establish care with one of the [facility] primary care providers. *Return to the Emergency Department for worsening symptoms, inability to keep liquids down, fever greater than 101F, chills, or other concerning symptom. Prescriptions: No Action atorvastatin 40 MG tablet 40 mg HS Qty: 0 Eliquis 5 mg tablet 5 mg PO BID multivitamin [Daily Multi-Vitamin] PO glucosamine sulfate [Glucosamine] PO psyllium [Metamucil (sugar)] PO metronidazole 0.75 % cream 1 applic topical DAILY atorvastatin 80 mg tablet 80 mg PO DAILY ivermectin 1 % cream 1 applic topical DAILY metoprolol succinate 25 mg tablet extended release 24 hr 25 mg PO DAILY metronidazole 0.75 % lotion 1 applic topical DAILY Referrals: Genaro Whitney MD [Non-Staff] - Ernst Martinez DO [Primary Care Provider] - Stand Alone Forms: Patient Portal/API <Celso Chavez MD - Last Filed: 08/06/22 22:21> Cosign ED Attending Cosignature Attestation: I personally evaluated and examined the patient and agree with the assessment, treatment plan, and disposition of the patient as recorded by the APC. MD Scott
[2022-07-22] MEDS: propofoL 200 MG/20 ML VIAL 90 MG IV (15:48)
== END 2022-07-22 16:45 | disposition home or self-care (01) ==
PROVIDERS: Emergency Medicine; Emergency Provider Nurse Practitioner Critical Care Medicine; PCP Family Medicine
DX: I48.0 Paroxysmal atrial fibrillation (principal); R07.9 Chest pain, unspecified; Z79.01 Long term (current) use of anticoagulants; Z20.822 Contact with and (suspected) exposure to COVID-19; Z86.16 Personal history of COVID-19
CPT/HCPCS: 36415; 71045; 80053; 82550; 82553; 83690; 83735; 84484; 85025; 85610; 85730; 87635; 92960; 93005; 93010; 99152; 99285; C9803; J2704

== ENCOUNTER 2022-10-01 10:51 | Emergency (ER) | payer MEDICARE, OTHER, SELFPAY ==
[2022-10-01 10:58] VITALS: BP 118/71; PULSE 73; RESP 16; TEMP 36.9; O2SAT 97; BMI 27.9
--- NOTE | 2022-10-01 11:11 | ED.ARRPALP ---
HPI - Arrhythmia/Palpitations General Chief Complaint: Arrhythmia/Palpitations Stated Complaint: per pt cardioverted Time Seen by Provider: 10/01/22 11:02 Source: patient Mode of arrival: Ambulatory Limitations: no limitations History of Present Illness HPI narrative: Patient is a 67-year-old male. Has a known history of paroxysmal atrial fibrillation. He is here feeling like he is in atrial fibrillation. He states he would like to be cardioverted. He has been cardioverted in the past. He is on apixaban. He is also on metoprolol. He has been in AFib for the past 5 days. [place] the [place] 5 [place] which is why it is taking him this long to come in. He denies chest pain, shortness of breath, lightheadedness. He states that at baseline his heart rate is in the 40s and 50s and his AFib heart rate is in the 70s or 80s. He is scheduled for an ablation but this has not for several months. He has been taking his metoprolol. He was recently given a prescription for Multaq but has yet to start this medication. Related Data Home Medications Medication Instructions Recorded Confirmed atorvastatin 40 mg tablet 40 mg HS ##0 12/21/15 atorvastatin 80 mg tablet 80 mg PO DAILY 11/11/20 11/11/20 ivermectin 1 % topical cream 1 applic topical DAILY 11/11/20 11/11/20 metoprolol succinate 25 mg 25 mg PO DAILY 11/11/20 07/22/22 tablet,extended release 24 hr metronidazole 0.75 % lotion 1 applic topical DAILY 11/11/20 11/11/20 apixaban 5 mg tablet (Eliquis) 5 mg PO BID 11/18/20 07/22/22 glucosamine sulfate [Glucosamine] PO 11/18/20 11/18/20 metronidazole 0.75 % topical cream 1 applic topical DAILY 11/18/20 11/18/20 multivitamin [Daily Multi-Vitamin] PO 11/18/20 11/18/20 psyllium [Metamucil (sugar)] PO 11/18/20 11/18/20 Previous Rx's Medication Instructions Recorded dronedarone 400 mg tablet 400 mg PO BID #180 tabs 10/01/22 Allergies Allergy/AdvReac Type Severity Reaction Status Date / Time No Known Drug Allergies Allergy Verified 07/22/22 11:11 Review of Systems Constitutional Constitutional: Reports system reviewed and no additional complaints, except as documented Cardiovascular Cardiovascular: Reports system reviewed and no additional complaints, except as documented Respiratory Respiratory: Reports system reviewed and no additional complaints, except as documented Integumentary/Breasts Skin/Breast: Reports system reviewed and no additional complaints, except as documented Neurologic Neurologic: Reports system reviewed and no additional complaints, except as documented Hematologic/Lymphatic On Anticoagulants: Yes Patient History Medical History History of adenomatous polyp of colon (~03/16/17) Hypertension Paroxysmal atrial fibrillation (~04/09/18) Personal history of colonic polyps Social History Smoking Status: Never smoker Smoking Status: Never smoker alcohol intake frequency: a few times a month Substance Use Type: does not use Exam Initial Vital Signs Initial Vital Signs: Vital Signs Temperature 98.5 F 10/01/22 10:58 Pulse Rate 73 10/01/22 10:58 Respiratory Rate 16 10/01/22 10:58 Blood Pressure 118/71 10/01/22 10:58 Pulse Oximetry 97 10/01/22 10:58 Oxygen Delivery Method Room Air 10/01/22 10:58 HENMT Head: normal to inspection and normocephalic Resp Effort & Inspection: normal respiratory effort Auscultation: clear to auscultation bilaterally Cardio Rate: regular rate Rhythm: abnormal rhythm GI Inspection: normal to inspection Skin General: no rashes or lesions noted Neuro General: patient alert, patient awake and moves all extremities Extrem General: capillary refill normal Course Orders Ordered: ED Orders 10/01/22 11:06 EKG-12 Lead Stat Sodium Chloride (Normal Saline 0.9%) 1,000 mls @ 125 mls/hr IV CONT DIONE Discontinued Medications Fentanyl (Fentanyl 100 Mcg/2 Ml Inj) 12.5 mcg IV NOW ONE Stop: 10/01/22 11:13 Propofol (Propofol 200 Mg/20 Ml Vial) 100 mg IV NOW ONE Stop: 10/01/22 11:13 Vital Signs Vital signs: Vital Signs - 8 hr 10/01/22 10:58 Temperature 98.5 F Pulse Rate 73 Respiratory Rate 16 Blood Pressure 118/71 Pulse Oximetry 97 Oxygen Delivery Method Room Air MDM - Arrhythmia/Palpitations ECG Data Attestation: I personally reviewed and interpreted this ECG as follows: Interpretation: Atrial fibrillation Ventricular rate is [address] T wave changes MDM Narrative Medical decision making narrative: Patient is here requesting a cardioversion. He is in atrial fibrillation but is rate controlled. He is not having chest pain or shortness of breath. He is not unstable. Initially I consulted the patient for a cardioversion. I went back into confirm that he has been on his anticoagulation for the past month and he states that about 9 days ago he was off of his anticoagulation for about 72 hours for colonoscopy. Had a long discussion with him regarding this. We did discuss the issues with being off the anticoagulation in the fact that he had been not anticoagulated during that time. We discussed the risks of cardioversion to include CVA. I feel the fact that he is stable, asymptomatic and rate controlled that converting him would be too risky today because he was off this blood thinner. He expressed understanding. He will continue to take his metoprolol. A prescription for the Multaq was sent to a local pharmacy as the prior prescription was sent to a mail order pharmacy which he no longer uses. Will discharge patient home with return precautions. He expressed understanding and agreement. Discharge Plan Departure Patient Disposition: Home Clinical Impression: Atrial fibrillation Instructions: DI for Atrial Fibrillation Activity Restrictions/Additional Instructions: I do recommend that you take all of your medications as directed. 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 Return to the emergency department for new or worsening symptoms. Prescriptions: New dronedarone 400 mg tablet 400 mg PO BID Qty: 180 0RF Rx Instructions: must administer with a meal/food No Action atorvastatin 40 MG tablet 40 mg HS Qty: 0 Eliquis 5 mg tablet 5 mg PO BID multivitamin [Daily Multi-Vitamin] PO glucosamine sulfate [Glucosamine] PO psyllium [Metamucil (sugar)] PO metronidazole 0.75 % cream 1 applic topical DAILY atorvastatin 80 mg tablet 80 mg PO DAILY ivermectin 1 % cream 1 applic topical DAILY metoprolol succinate 25 mg tablet extended release 24 hr 25 mg PO DAILY metronidazole 0.75 % lotion 1 applic topical DAILY Referrals: Ernst Martinez, [Primary Care Provider] - Stand Alone Forms: Patient Portal/API
[2022-10-01 11:30] VITALS: BP 115/83; PULSE 55; RESP 12; O2SAT 98
== END 2022-10-01 11:35 | disposition home or self-care (01) ==
PROVIDERS: Emergency Provider Emergency Medicine; PCP Family Medicine
DX: I48.91 Unspecified atrial fibrillation (principal); Z79.01 Long term (current) use of anticoagulants
CPT/HCPCS: 93005; 93010; 99281; 99282

== ENCOUNTER → 2022-10-25 09:08 | Outpatient (CLI) | payer MEDICARE, OTHER, SELFPAY ==
--- NOTE | 2022-10-25 | DI.MRI.S_ITS ---
PROCEDURE: MR LUMBAR SPINE WO CON INDICATIONS: Other spondylosis with radiculopathy, lumbar region TECHNIQUE: Noncontrast sagittal T1 spin echo and T2 fast echo, sagittal STIR, and T2 fast spin echo through the lumbar spine. In cases with scoliosis, additional coronal T2 fast spin echo may be performed. COMPARISON: None. FINDINGS: Image quality: Excellent. Alignment and Curvature: There is normal bony alignment. Bone Marrow: Multilevel degenerative endplate changes noted including Modic type 1 edematous endplate changes at L1-2 Spinal Cord: Conus medullaris terminates at the L1 level. Visualized cord demonstrates normal signal and size. Paraspinous Soft Tissues: No paravertebral masses. T12-L1: Disc space narrowing with circumferential disc bulge results in mild central stenosis. No foraminal stenosis L1-L2: Disc space narrowing with circumferential disc bulge and hypertrophic facet joints results in mild central stenosis. Moderate bilateral foraminal stenosis L2-L3: Disc space narrowing with circumferential disc bulge and hypertrophic facet joints present. There is effacement of the right lateral recess and mild central stenosis. Moderate bilateral foraminal stenosis greater on the right. L3-L4: Disc space narrowing with circumferential disc bulge and hypertrophic facet joints results in moderate central stenosis. Severe left and moderate right foraminal stenosis L4-L5: Disc space narrowing and circumferential disc bulge with hypertrophic facet joints results in moderate central stenosis. Moderate bilateral foraminal stenosis L5-S1: Disc space narrowing and hypertrophic facet joints results in mild central stenosis. Moderate bilateral foraminal stenosis IMPRESSION: Degenerative disc disease and arthropathy results in varying degrees of central and foraminal stenosis including moderate central stenosis L3-4, L4-5 Approved by: Brad Gomes M.D. on 10/25/2022 at 18:54
== END ==
PROVIDERS: PCP Family Medicine; Referring Provider Physical Medicine & Rehabilitation Sports Medicine; Visit Provider Physical Medicine & Rehabilitation Sports Medicine
DX: M47.26 Other spondylosis with radiculopathy, lumbar region (principal); M51.16 Intervertebral disc disorders with radiculopathy, lumbar region; M48.061 Spinal stenosis, lumbar region without neurogenic claudication
CPT/HCPCS: 72148

== ENCOUNTER → 2025-02-13 11:14 | Outpatient (CLI) | payer MEDICARE, OTHER, SELFPAY ==
--- NOTE | 2025-02-13 11:22 | DI.CT.S_ITS ---
PROCEDURE: CT SINUS SCREEN WO CON INDICATIONS: Acute upper respiratory infection, unspecified TECHNIQUE: Noncontrast 3.0 mm axial images acquired from the frontal sinuses to the mid- sella, with coronal and sagittal reformats. For radiation dose reduction, the following was used: automated exposure control, adjustment of mA and/or kV according to patient size. COMPARISON: None. FINDINGS: Image quality: Excellent. Maxillary Sinuses: No bony remodeling or destruction. Mild bilateral maxillary sinus mucosal thickening with area of polypoid thickening along the lateral left maxillary sinus wall. Small amount of aerated secretions within the left maxillary sinus are present. Mild mucosal thickening of the bilateral maxillary OMUs. Ethmoid Air Cells: No bony remodeling or destruction. Sinuses are clear. Sphenoid Sinuses: No bony remodeling or destruction. Sinuses are clear. Frontal Sinuses: No bony remodeling or destruction. Sinuses are clear. Ostiomeatal Complexes: Mild mucosal thickening of the bilateral ostiomeatal complexes. A left sided Mary cell is present. Miscellaneous: Visualized intra-orbital contents are normal. No meseret bullosa or paradoxical turbinate curvature. Mild leftward nasal septal deviation. IMPRESSION: Mild bilateral maxillary sinus mucosal thickening with area of polypoid thickening along the lateral left maxillary sinus wall. Small amount of aerated secretions within the left maxillary sinus are present. Remaining paranasal sinuses and sinus drainage pathways are clear. Dictated by: Lonny Huizar M.D. on 02/15/2025 at 0:37 Approved by: Lonny Huizar M.D. on 02/15/2025 at 0:44
== END ==
LOC: CT 11:20
PROVIDERS: PCP Family Medicine; Referring Provider Family Medicine; Visit Provider Internal Medicine
DX: J32.4 Chronic pansinusitis (principal)
CPT/HCPCS: 70486